=== PATIENT | male | born 1975 | race Caucasian/White ===

== ENCOUNTER 2016-10-14 14:28 | Emergency (ER) | payer OTHER ==
[~2016-10-14] VITALS: Ht 172.7 cm; Wt 79.8 kg
[~2016-10-14 14:28] MED LIST: CARI250T8 PO; HYDR-1421 PO
[2016-10-14 15:15] VITALS: BP 145/88
[2016-10-14] MEDS ORDERED: HYDROcodone-ACET 7.5/325MG TAB PO ONE (15:30)
[2016-10-14] MEDS ORDERED: KETOROLAC TROMETH 60MG/2ML VIAL IM ONE (15:30)
[2016-10-14] MEDS ORDERED: IOHEXOL 300 MG/ML 100ML BOTTLE IJ ONE (16:21)
== END 2016-10-14 17:39 | disposition home or self-care (01) ==
LOC: ER 14:30
DX: S42.022A Displaced fracture of shaft of left clavicle, initial encounter for closed fracture (principal); S29.012A Strain of muscle and tendon of back wall of thorax, initial encounter; S70.02XA Contusion of left hip, initial encounter; Z88.0 Allergy status to penicillin; Z88.1 Allergy status to other antibiotic agents; V86.59XA Driver of other special all-terrain or other off-road motor vehicle injured in nontraffic accident, initial encounter; Y93.89 Activity, other specified; Y99.8 Other external cause status; Y92.89 Other specified places as the place of occurrence of the external cause
CPT/HCPCS: 29105; 71101; 73000; 74177; 96372; 99284; J1885; Q9967

== ENCOUNTER 2018-04-07 07:55 | Emergency (ER) | payer OTHER ==
[~2018-04-07] VITALS: Ht 172.7 cm; Wt 81.6 kg
[~2018-04-07 07:55] MED LIST changes: +CARI250T PO; -CARI250T8 PO
[2018-04-07 08:34] VITALS: BP 153/99
[2018-04-07] MEDS ORDERED: ONDANSETRON ODT 4 MG TAB PO ONE (09:00)
[2018-04-07] MEDS ORDERED: KETOROLAC TROMETH 60MG/2ML VIAL IM ONE (09:00)
[2018-04-07] MEDS ORDERED: NALBUPHINE HCL 10 MG/1ml INJECTION IM ONE (09:30)
== END 2018-04-07 10:06 | disposition home or self-care (01) ==
LOC: ER 07:55
DX: G43.909 Migraine, unspecified, not intractable, without status migrainosus (principal); G89.29 Other chronic pain; M54.5 Low back pain
CPT/HCPCS: 70450; 96372; 99284; J1885; J2300; Q0162